=== PATIENT | male | born 1945 | race Caucasian/White ===

== ENCOUNTER 2024-09-19 14:46 | Outpatient (RCR) | payer MEDICARE, BC, SELFPAY ==
[2024-09-17 14:40] LABS: Basophils % (Auto) 1 % (0-2.5); Eosinophils # (Auto) 0.1 Thou/mm3 (0.0-0.5); Eosinophils % (Auto) 3 % (0-10); Hematocrit 35.4 % (41.0-53.0); Hemoglobin 11.1 g/dL (13.5-16.0); Immature Granulocytes % (Auto) 2 % (0-0); Immature Granulocytes Auto 0.07 Thou/mm3 (0.00-0.00); Lymphocytes # (Auto) 0.8 Thou/mm3 (1.0-4.8); Lymphocytes % (Auto) 19 % (10-50); Mean Corpuscular HGB Conc 31.4 g/dl (31.0-37.0); Mean Corpuscular Hemoglobin 31.4 pg (25.0-35.0); Mean Corpuscular Volume 100 fL (80-100); Monocytes # (Auto) 0.7 Thou/mm3 (0.0-0.8); Monocytes % (Auto) 16 % (0-12); Neutrophils # (Auto) 2.6 Thou/mm3 (1.8-7.7); Neutrophils % (Auto) 60 % (37-80); Nucleated Red Blood Cell % 0 /100 WBC (0); Platelet Count 122 Thou/mm3 (140-440); RDW Standard Deviation 45.6 fL (35.1-43.9); Red Blood Count 3.54 Miln/mm3 (4.50-5.90); White Blood Count 4.3 Thou/mm3 (3.8-10.6)
[2024-09-17 15:01] LABS: Folate 18.38 ng/mL (>5.38); Vitamin B12 1263 pg/mL (211-911)
[2024-09-17 15:03] LABS: Alanine Aminotransferase 9 U/L (10-49); Albumin/Globulin Ratio 1.8 (1.2-2.2); Alkaline Phosphatase 135 U/L (46-116); Anion Gap 9 (7-16); Aspartate Amino Transferase 13 U/L (0-34); BUN/Creatinine Ratio 21 Ratio (12-20); Bilirubin,Total 0.5 mg/dL (0.3-1.2); Blood Urea Nitrogen 17 mg/dL (9-23); Carbon Dioxide 25.9 mMol/L (20.0-31.0); Chloride 101 mMol/L (98-107); Creatinine (Component) 0.8 mg/dL (0.6-1.3); Globulin 2.2 gm/dL (2.3-3.5); Glucose 167 mg/dL (74-106); LDH (Lactate Dehydrogenase) 170 U/L (120-246); Osmolality,Calculated 277 (275-295); Potassium 3.5 mMol/L (3.4-5.1); Sodium 136 mMol/L (136-145); Total Protein 6.2 gm/dL (5.7-8.2); eGFR > 60 See Note
[2024-09-17 15:08] LABS: Ferritin 1184 ng/mL (10.5-307.3); Total Iron Binding Capacity 240 mcg/dL (250-425)
[2024-09-17 15:18] LABS: Iron 61 mcg/dL (65-175); Percent Iron Saturation 25 % (20-55); Unsaturated Iron Binding 179 (225-295)
[2024-09-25 06:17] LABS: Haptoglobin* 96 mg/dL (43-212)
== END 2024-10-09 23:59 | disposition home or self-care (01) ==
LOC: SCTC 14:46
PROVIDERS: PCP Nurse Practitioner Family; Referring Provider Internal Medicine Hematology & Oncology; Visit Provider Nurse Practitioner Family
DX: C83.04 Small cell B-cell lymphoma, lymph nodes of axilla and upper limb (principal); D50.9 Iron deficiency anemia, unspecified
CPT/HCPCS: 36591; 80053; 82607; 82728; 82746; 83010; 83540; 83550; 83615; 85025; 99212; A4216; J1642; G0463

== ENCOUNTER 2024-10-23 13:50 | Outpatient (RCR) | payer MEDICARE, BC, SELFPAY ==
[2024-10-22 17:01] LABS: Basophils % (Auto) 1 % (0-2.5); Eosinophils # (Auto) 0.2 Thou/mm3 (0.0-0.5); Eosinophils % (Auto) 4 % (0-10); Hematocrit 37.2 % (41.0-53.0); Hemoglobin 11.9 g/dL (13.5-16.0); Immature Granulocytes % (Auto) 1 % (0-0); Immature Granulocytes Auto 0.06 Thou/mm3 (0.00-0.00); Lymphocytes # (Auto) 0.8 Thou/mm3 (1.0-4.8); Lymphocytes % (Auto) 16 % (10-50); Mean Corpuscular Hemoglobin 30.7 pg (25.0-35.0); Mean Corpuscular Volume 96 fL (80-100); Monocytes # (Auto) 0.7 Thou/mm3 (0.0-0.8); Monocytes % (Auto) 14 % (0-12); Neutrophils # (Auto) 3.1 Thou/mm3 (1.8-7.7); Neutrophils % (Auto) 65 % (37-80); Nucleated Red Blood Cell % 0 /100 WBC (0); Platelet Count 114 Thou/mm3 (140-440); RDW Standard Deviation 41.2 fL (35.1-43.9); Red Blood Count 3.87 Miln/mm3 (4.50-5.90); White Blood Count 4.8 Thou/mm3 (3.8-10.6)
[2024-10-22 17:21] LABS: Alanine Aminotransferase 10 U/L (10-49); Albumin, Serum 3.9 gm/dL (3.4-4.8); Albumin/Globulin Ratio 1.7 (1.2-2.2); Alkaline Phosphatase 126 U/L (46-116); Anion Gap 10 (7-16); Aspartate Amino Transferase 17 U/L (0-34); BUN/Creatinine Ratio 24 Ratio (12-20); Bilirubin,Total 0.6 mg/dL (0.3-1.2); Blood Urea Nitrogen 19 mg/dL (9-23); Calcium 8.8 mg/dL (8.3-10.6); Calcium (Corrected) 8.9 mg/dL (8.5-10.1); Carbon Dioxide 27.6 mMol/L (20.0-31.0); Chloride 101 mMol/L (98-107); Creatinine (Component) 0.8 mg/dL (0.6-1.3); Globulin 2.3 gm/dL (2.3-3.5); Glucose 202 mg/dL (74-106); Osmolality,Calculated 285 (275-295); Potassium 3.6 mMol/L (3.4-5.1); Sodium 139 mMol/L (136-145); Total Protein 6.2 gm/dL (5.7-8.2); eGFR > 60 See Note
[2024-10-22 19:27] LABS: Folate 20.15 ng/mL (>5.38); Vitamin B12 1100 pg/mL (211-911)
[2024-10-22 20:58] LABS: Ferritin 1049 ng/mL (10.5-307.3); Iron 55 mcg/dL (65-175); Percent Iron Saturation 23 % (20-55); Total Iron Binding Capacity 236 mcg/dL (250-425); Unsaturated Iron Binding 181 (225-295)
== END 2024-11-09 23:59 | disposition home or self-care (01) ==
LOC: SCTC 13:50
PROVIDERS: Internal Medicine Hematology & Oncology; PCP Nurse Practitioner Family; Referring Provider Nurse Practitioner Family; Visit Provider Nurse Practitioner Family
DX: C83.04 Small cell B-cell lymphoma, lymph nodes of axilla and upper limb (principal); D50.9 Iron deficiency anemia, unspecified; J90 Pleural effusion, not elsewhere classified
CPT/HCPCS: 36591; 80053; 82607; 82728; 82746; 83540; 83550; 85025; 99212; A4216; J1642; G0463

== ENCOUNTER 2024-11-22 13:20 | Outpatient (RCR) | payer MEDICARE, BC, SELFPAY ==
[2024-11-21 14:17] LABS: Basophils % (Auto) 1 % (0-2.5); Eosinophils # (Auto) 0.2 Thou/mm3 (0.0-0.5); Eosinophils % (Auto) 4 % (0-10); Hematocrit 36.9 % (41.0-53.0); Hemoglobin 12.3 g/dL (13.5-16.0); Immature Granulocytes % (Auto) 6 % (0-0); Immature Granulocytes Auto 0.32 Thou/mm3 (0.00-0.00); Lymphocytes # (Auto) 0.8 Thou/mm3 (1.0-4.8); Lymphocytes % (Auto) 14 % (10-50); Mean Corpuscular HGB Conc 33.3 g/dl (31.0-37.0); Mean Corpuscular Hemoglobin 30.6 pg (25.0-35.0); Mean Corpuscular Volume 92 fL (80-100); Monocytes # (Auto) 0.8 Thou/mm3 (0.0-0.8); Monocytes % (Auto) 15 % (0-12); Neutrophils # (Auto) 3.2 Thou/mm3 (1.8-7.7); Neutrophils % (Auto) 60 % (37-80); Nucleated Red Blood Cell % 0 /100 WBC (0); Platelet Count 127 Thou/mm3 (140-440); RDW Standard Deviation 40.8 fL (35.1-43.9); Red Blood Count 4.02 Miln/mm3 (4.50-5.90); White Blood Count 5.3 Thou/mm3 (3.8-10.6)
[2024-11-21 14:41] LABS: Alanine Aminotransferase 10 U/L (10-49); Albumin/Globulin Ratio 1.9 (1.2-2.2); Alkaline Phosphatase 136 U/L (46-116); Anion Gap 7 (7-16); Aspartate Amino Transferase 16 U/L (0-34); BUN/Creatinine Ratio 27 Ratio (12-20); Bilirubin,Total 0.7 mg/dL (0.3-1.2); Blood Urea Nitrogen 19 mg/dL (9-23); Calcium 8.7 mg/dL (8.3-10.6); Calcium (Corrected) 8.7 mg/dL (8.5-10.1); Carbon Dioxide 27.3 mMol/L (20.0-31.0); Chloride 106 mMol/L (98-107); Creatinine (Component) 0.7 mg/dL (0.6-1.3); Globulin 2.1 gm/dL (2.3-3.5); Glucose 166 mg/dL (74-106); Osmolality,Calculated 285 (275-295); Potassium 3.9 mMol/L (3.4-5.1); Sodium 140 mMol/L (136-145); Total Protein 6.1 gm/dL (5.7-8.2); eGFR > 60 See Note
[2024-11-21 15:11] LABS: Ferritin 993 ng/mL (10.5-307.3); Iron 50 mcg/dL (65-175); Percent Iron Saturation 21 % (20-55); Total Iron Binding Capacity 231 mcg/dL (250-425); Unsaturated Iron Binding 181 (225-295)
[2024-11-21 15:25] LABS: Folate > 24.00 ng/mL (>5.38); Vitamin B12 1716 pg/mL (211-911)
== END 2024-12-07 23:59 | disposition home or self-care (01) ==
LOC: SCTC 13:20
PROVIDERS: Internal Medicine Hematology & Oncology; PCP Nurse Practitioner Family; Referring Provider Nurse Practitioner Family; Visit Provider Nurse Practitioner Family
DX: C83.04 Small cell B-cell lymphoma, lymph nodes of axilla and upper limb (principal); D50.9 Iron deficiency anemia, unspecified; J90 Pleural effusion, not elsewhere classified
CPT/HCPCS: 36591; 80053; 82607; 82728; 82746; 83540; 83550; 85025; 99212; A4216; J1642; G0463

== ENCOUNTER 2024-12-24 14:03 | Outpatient (RCR) | payer MEDICARE, BC, SELFPAY ==
[2024-12-21 11:51] LABS: Basophils # (Auto) 0.1 Thou/mm3 (0.0-0.2); Basophils % (Auto) 1 % (0-2.5); Eosinophils # (Auto) 0.3 Thou/mm3 (0.0-0.5); Eosinophils % (Auto) 5 % (0-10); Hemoglobin 12.6 g/dL (13.5-16.0); Immature Granulocytes % (Auto) 4 % (0-0); Immature Granulocytes Auto 0.25 Thou/mm3 (0.00-0.00); Lymphocytes % (Auto) 16 % (10-50); Mean Corpuscular HGB Conc 32.3 g/dl (31.0-37.0); Mean Corpuscular Hemoglobin 29.9 pg (25.0-35.0); Mean Corpuscular Volume 92 fL (80-100); Monocytes # (Auto) 1.2 Thou/mm3 (0.0-0.8); Monocytes % (Auto) 19 % (0-12); Neutrophils # (Auto) 3.6 Thou/mm3 (1.8-7.7); Neutrophils % (Auto) 56 % (37-80); Nucleated Red Blood Cell % 0 /100 WBC (0); Platelet Count 127 Thou/mm3 (140-440); RDW Standard Deviation 42.2 fL (35.1-43.9); Red Blood Count 4.22 Miln/mm3 (4.50-5.90); White Blood Count 6.4 Thou/mm3 (3.8-10.6)
[2024-12-21 12:15] LABS: Alanine Aminotransferase 11 U/L (10-49); Albumin/Globulin Ratio 1.9 (1.2-2.2); Alkaline Phosphatase 128 U/L (46-116); Anion Gap 8 (7-16); Aspartate Amino Transferase 14 U/L (0-34); BUN/Creatinine Ratio 24 Ratio (12-20); Bilirubin,Total 0.7 mg/dL (0.3-1.2); Blood Urea Nitrogen 17 mg/dL (9-23); Calcium 8.7 mg/dL (8.3-10.6); Calcium (Corrected) 8.7 mg/dL (8.5-10.1); Carbon Dioxide 26.8 mMol/L (20.0-31.0); Chloride 105 mMol/L (98-107); Creatinine (Component) 0.7 mg/dL (0.6-1.3); Globulin 2.1 gm/dL (2.3-3.5); Glucose 78 mg/dL (74-106); Osmolality,Calculated 279 (275-295); Potassium 4.1 mMol/L (3.4-5.1); Sodium 140 mMol/L (136-145); Total Protein 6.1 gm/dL (5.7-8.2); eGFR > 60 See Note
[2024-12-21 12:24] LABS: Ferritin 1082 ng/mL (10.5-307.3); Folate 23.15 ng/mL (>5.38); Iron 45 mcg/dL (65-175); Percent Iron Saturation 20 % (20-55); Total Iron Binding Capacity 224 mcg/dL (250-425); Unsaturated Iron Binding 179 (225-295); Vitamin B12 1813 pg/mL (211-911)
== END 2025-01-07 23:59 | disposition home or self-care (01) ==
LOC: SCTC 14:03
PROVIDERS: PCP Nurse Practitioner Family; Referring Provider Nurse Practitioner Family; Visit Provider Internal Medicine Hematology & Oncology
DX: C83.04 Small cell B-cell lymphoma, lymph nodes of axilla and upper limb (principal); D50.9 Iron deficiency anemia, unspecified
CPT/HCPCS: 36591; 80053; 82607; 82728; 82746; 83540; 83550; 85025; 99212; A4216; J1642; G0463

== ENCOUNTER 2025-01-28 13:22 | Outpatient (RCR) | payer MEDICARE, BC, SELFPAY ==
[2025-01-25 11:43] LABS: Basophils # (Auto) 0.1 Thou/mm3 (0.0-0.2); Basophils % (Auto) 1 % (0-2.5); Eosinophils # (Auto) 0.4 Thou/mm3 (0.0-0.5); Eosinophils % (Auto) 7 % (0-10); Hematocrit 40.8 % (41.0-53.0); Hemoglobin 13.3 g/dL (13.5-16.0); Immature Granulocytes % (Auto) 2 % (0-0); Immature Granulocytes Auto 0.13 Thou/mm3 (0.00-0.00); Lymphocytes % (Auto) 14 % (10-50); Mean Corpuscular HGB Conc 32.6 g/dl (31.0-37.0); Mean Corpuscular Hemoglobin 29.3 pg (25.0-35.0); Mean Corpuscular Volume 90 fL (80-100); Monocytes # (Auto) 1.2 Thou/mm3 (0.0-0.8); Monocytes % (Auto) 17 % (0-12); Neutrophils % (Auto) 59 % (37-80); Nucleated Red Blood Cell % 0 /100 WBC (0); Platelet Count 141 Thou/mm3 (140-440); RDW Standard Deviation 41.5 fL (35.1-43.9); Red Blood Count 4.54 Miln/mm3 (4.50-5.90); White Blood Count 6.8 Thou/mm3 (3.8-10.6)
[2025-01-25 12:07] LABS: Folate 20.67 ng/mL (>5.38); Vitamin B12 1549 pg/mL (211-911)
[2025-01-25 12:09] LABS: Ferritin 996 ng/mL (10.5-307.3); Iron 54 mcg/dL (65-175); Percent Iron Saturation 24 % (20-55); Total Iron Binding Capacity 222 mcg/dL (250-425); Unsaturated Iron Binding 168 (225-295)
[2025-01-25 12:18] LABS: Alanine Aminotransferase < 7 U/L (10-49); Albumin/Globulin Ratio 1.9 (1.2-2.2); Alkaline Phosphatase 126 U/L (46-116); Anion Gap 6 (7-16); Aspartate Amino Transferase 12 U/L (0-34); BUN/Creatinine Ratio 21 Ratio (12-20); Bilirubin,Total 0.7 mg/dL (0.3-1.2); Blood Urea Nitrogen 17 mg/dL (9-23); Calcium 8.7 mg/dL (8.3-10.6); Calcium (Corrected) 8.7 mg/dL (8.5-10.1); Carbon Dioxide 27.6 mMol/L (20.0-31.0); Chloride 107 mMol/L (98-107); Creatinine (Component) 0.8 mg/dL (0.6-1.3); Globulin 2.1 gm/dL (2.3-3.5); Glucose 90 mg/dL (74-106); Osmolality,Calculated 282 (275-295); Potassium 4.1 mMol/L (3.4-5.1); Sodium 141 mMol/L (136-145); Total Protein 6.1 gm/dL (5.7-8.2); eGFR > 60 See Note
== END 2025-02-06 23:59 | disposition home or self-care (01) ==
LOC: SCTC 13:22
PROVIDERS: Internal Medicine Hematology & Oncology; PCP Nurse Practitioner Family; Referring Provider Nurse Practitioner Family; Visit Provider Nurse Practitioner Family
DX: D50.9 Iron deficiency anemia, unspecified (principal)
CPT/HCPCS: 36591; 80053; 82607; 82728; 82746; 83540; 83550; 85025; 99212; A4216; J1642; G0463

== ENCOUNTER 2025-03-07 13:27 | Outpatient (RCR) | payer MEDICARE, BC, SELFPAY ==
[2025-03-07 15:43] LABS: Basophils # (Auto) 0.1 Thou/mm3 (0.0-0.2); Basophils % (Auto) 1 % (0-2.5); Eosinophils # (Auto) 0.3 Thou/mm3 (0.0-0.5); Eosinophils % (Auto) 5 % (0-10); Hematocrit 39.1 % (41.0-53.0); Hemoglobin 13.3 g/dL (13.5-16.0); Immature Granulocytes % (Auto) 2 % (0-0); Immature Granulocytes Auto 0.12 Thou/mm3 (0.00-0.00); Lymphocytes # (Auto) 0.7 Thou/mm3 (1.0-4.8); Lymphocytes % (Auto) 11 % (10-50); Mean Corpuscular Hemoglobin 29.9 pg (25.0-35.0); Mean Corpuscular Volume 88 fL (80-100); Monocytes % (Auto) 15 % (0-12); Neutrophils # (Auto) 4.4 Thou/mm3 (1.8-7.7); Neutrophils % (Auto) 67 % (37-80); Nucleated Red Blood Cell % 0 /100 WBC (0); Platelet Count 150 Thou/mm3 (140-440); RDW Standard Deviation 41.7 fL (35.1-43.9); Red Blood Count 4.45 Miln/mm3 (4.50-5.90); White Blood Count 6.7 Thou/mm3 (3.8-10.6)
[2025-03-07 16:16] LABS: Ferritin 882 ng/mL (10.5-307.3); Iron 36 mcg/dL (65-175); Percent Iron Saturation 16 % (20-55); Total Iron Binding Capacity 212 mcg/dL (250-425); Unsaturated Iron Binding 176 (225-295)
[2025-03-07 16:17] LABS: Folate 23.13 ng/mL (>5.38); Vitamin B12 1332 pg/mL (211-911)
[2025-03-07 16:26] LABS: Alanine Aminotransferase < 7 U/L (10-49); Albumin, Serum 3.9 gm/dL (3.4-4.8); Alkaline Phosphatase 119 U/L (46-116); Anion Gap 10 (7-16); Aspartate Amino Transferase 13 U/L (0-34); BUN/Creatinine Ratio 19 Ratio (12-20); Bilirubin,Total 0.6 mg/dL (0.3-1.2); Blood Urea Nitrogen 17 mg/dL (9-23); Calcium 8.1 mg/dL (8.3-10.6); Calcium (Corrected) 8.2 mg/dL (8.5-10.1); Carbon Dioxide 26.8 mMol/L (20.0-31.0); Chloride 104 mMol/L (98-107); Creatinine (Component) 0.9 mg/dL (0.6-1.3); Glucose 179 mg/dL (74-106); Osmolality,Calculated 286 (275-295); Potassium 3.8 mMol/L (3.4-5.1); Sodium 141 mMol/L (136-145); Total Protein 5.9 gm/dL (5.7-8.2); eGFR > 60 See Note
== END 2025-03-09 23:59 | disposition home or self-care (01) ==
LOC: SCTC 13:27
PROVIDERS: PCP Student in an Organized Health Care Education/Training Program; Referring Provider Internal Medicine Hematology & Oncology; Visit Provider Internal Medicine Hematology & Oncology
DX: D50.9 Iron deficiency anemia, unspecified (principal); C83.04 Small cell B-cell lymphoma, lymph nodes of axilla and upper limb
CPT/HCPCS: 36591; 80053; 82607; 82728; 82746; 83540; 83550; 85025; A4216; J1642

== ENCOUNTER 2025-04-08 09:23 | Outpatient (RCR) | payer MEDICARE, BC, SELFPAY ==
[2025-04-08 10:08] LABS: Basophils % (Auto) 1 % (0-2.5); Eosinophils # (Auto) 0.1 Thou/mm3 (0.0-0.5); Eosinophils % (Auto) 2 % (0-10); Hematocrit 40.5 % (41.0-53.0); Hemoglobin 13.5 g/dL (13.5-16.0); Immature Granulocytes % (Auto) 2 % (0-0); Immature Granulocytes Auto 0.17 Thou/mm3 (0.00-0.00); Lymphocytes # (Auto) 0.8 Thou/mm3 (1.0-4.8); Lymphocytes % (Auto) 11 % (10-50); Mean Corpuscular HGB Conc 33.3 g/dl (31.0-37.0); Mean Corpuscular Hemoglobin 29.3 pg (25.0-35.0); Mean Corpuscular Volume 88 fL (80-100); Monocytes # (Auto) 1.2 Thou/mm3 (0.0-0.8); Monocytes % (Auto) 16 % (0-12); Neutrophils % (Auto) 68 % (37-80); Nucleated Red Blood Cell % 0 /100 WBC (0); Platelet Count 152 Thou/mm3 (140-440); RDW Standard Deviation 42.1 fL (35.1-43.9); White Blood Count 7.3 Thou/mm3 (3.8-10.6)
[2025-04-08 10:27] LABS: Alanine Aminotransferase < 7 U/L (10-49); Albumin, Serum 4.1 gm/dL (3.4-4.8); Albumin/Globulin Ratio 2.2 (1.2-2.2); Alkaline Phosphatase 123 U/L (46-116); Anion Gap 5 (7-16); Aspartate Amino Transferase 13 U/L (0-34); BUN/Creatinine Ratio 20 Ratio (12-20); Bilirubin,Total 0.5 mg/dL (0.3-1.2); Blood Urea Nitrogen 16 mg/dL (9-23); Carbon Dioxide 27.1 mMol/L (20.0-31.0); Chloride 104 mMol/L (98-107); Creatinine (Component) 0.8 mg/dL (0.6-1.3); Globulin 1.9 gm/dL (2.3-3.5); Glucose 144 mg/dL (74-106); Osmolality,Calculated 276 (275-295); Potassium 3.8 mMol/L (3.4-5.1); Sodium 136 mMol/L (136-145); eGFR > 60 See Note
[2025-04-08 10:30] LABS: Ferritin 903 ng/mL (10.5-307.3); Folate 21.14 ng/mL (>5.38); Iron 36 mcg/dL (65-175); Percent Iron Saturation 17 % (20-55); Total Iron Binding Capacity 201 mcg/dL (250-425); Unsaturated Iron Binding 165 (225-295); Vitamin B12 694 pg/mL (211-911)
== END 2025-04-08 23:59 | disposition home or self-care (01) ==
LOC: SCTC 09:23
PROVIDERS: PCP Student in an Organized Health Care Education/Training Program; Referring Provider Student in an Organized Health Care Education/Training Program; Visit Provider Nurse Practitioner Family
DX: C83.04 Small cell B-cell lymphoma, lymph nodes of axilla and upper limb (principal); D50.9 Iron deficiency anemia, unspecified; Z92.21 Personal history of antineoplastic chemotherapy
CPT/HCPCS: 36591; 80053; 82607; 82728; 82746; 83540; 83550; 85025; 99212; A4216; J1642; G0463

== ENCOUNTER 2025-05-09 13:55 | Outpatient (RCR) | payer MEDICARE, BC, SELFPAY | END 2025-05-09 23:59 | disposition home or self-care (01) | LOC: SCTC 13:55 | PROVIDERS: PCP Student in an Organized Health Care Education/Training Program; Referring Provider Student in an Organized Health Care Education/Training Program; Visit Provider Nurse Practitioner Family | DX: D50.9 Iron deficiency anemia, unspecified (principal); C83.04 Small cell B-cell lymphoma, lymph nodes of axilla and upper limb | CPT/HCPCS: 96365; 99212; A4216; J1642; J7040; J7050; Q0138; G0463 ==

== ENCOUNTER 2025-05-30 13:40 | Outpatient (RCR) | payer MEDICARE, BC, SELFPAY | END 2025-06-09 23:59 | disposition home or self-care (01) | LOC: SCTC 13:40 | PROVIDERS: PCP Student in an Organized Health Care Education/Training Program; Referring Provider Student in an Organized Health Care Education/Training Program; Visit Provider Internal Medicine Hematology & Oncology | DX: D50.9 Iron deficiency anemia, unspecified (principal); C83.04 Small cell B-cell lymphoma, lymph nodes of axilla and upper limb | CPT/HCPCS: 96365; J1642; J7040; J7050; Q0138 ==

== ENCOUNTER 2025-06-25 15:27 | Outpatient (RCR) | payer MEDICARE, BC, SELFPAY ==
[2025-06-24 09:53] LABS: Basophils # (Auto) 0.0 Thou/mm3 (0.0-0.2); Basophils % (Auto) 1 % (0-2.5); Eosinophils # (Auto) 0.0 Thou/mm3 (0.0-0.5); Eosinophils % (Auto) 1 % (0-10); Hematocrit 40.3 % (41.0-53.0); Hemoglobin 13.0 g/dL (13.5-16.0); Immature Granulocytes Auto 0.09 Thou/mm3 (0.00-0.00); Immature Reticulocyte Fraction 6.5 % (2.3-13.4); Lymphocytes # (Auto) 0.5 Thou/mm3 (1.0-4.8); Lymphocytes % (Auto) 13 % (10-50); Mean Corpuscular HGB Conc 32.3 g/dl (31.0-37.0); Mean Corpuscular Hemoglobin 29.1 pg (25.0-35.0); Mean Corpuscular Volume 90 fL (80-100); Monocytes # (Auto) 0.8 Thou/mm3 (0.0-0.8); Monocytes % (Auto) 20 % (0-12); Neutrophils # (Auto) 2.5 Thou/mm3 (1.8-7.7); Neutrophils % (Auto) 64 % (37-80); Nucleated Red Blood Cell # 0.00 Thou/mm3 (0.00-0.00); Nucleated Red Blood Cell % 0 /100 WBC (0); Platelet Count 147 Thou/mm3 (140-440); RDW Standard Deviation 43.8 fL (35.1-43.9); Red Blood Count 4.47 Miln/mm3 (4.50-5.90); Reticulocyte % (Auto) 2.1 % (0.5-1.5); Reticulocyte Absolute Auto 95.6 Biln/L (25.0-75.0); Reticulocyte Hgb Content 32.3 pg (28.0-35.0); White Blood Count 4.0 Thou/mm3 (3.8-10.6)
[2025-06-24 10:23] LABS: Folate 19.02 ng/mL (>5.38); Vitamin B12 1402 pg/mL (211-911)
[2025-06-24 10:26] LABS: Alanine Aminotransferase 8 U/L (10-49); Albumin, Serum 3.8 gm/dL (3.4-4.8); Albumin/Globulin Ratio 1.7 (1.2-2.2); Alkaline Phosphatase 110 U/L (46-116); Anion Gap 9 (7-16); Aspartate Amino Transferase 14 U/L (0-34); BUN/Creatinine Ratio 13 Ratio (12-20); Bilirubin,Total 0.7 mg/dL (0.3-1.2); Blood Urea Nitrogen 10 mg/dL (9-23); Calcium 8.8 mg/dL (8.3-10.6); Calcium (Corrected) 9.0 mg/dL (8.5-10.1); Carbon Dioxide 23.7 mMol/L (20.0-31.0); Chloride 104 mMol/L (98-107); Creatinine (Component) 0.8 mg/dL (0.6-1.3); Globulin 2.2 gm/dL (2.3-3.5); Glucose 122 mg/dL (74-106); Osmolality,Calculated 273 (275-295); Potassium 4.2 mMol/L (3.4-5.1); Sodium 137 mMol/L (136-145); Total Protein 6.0 gm/dL (5.7-8.2); eGFR > 60 See Note
[2025-06-24 10:30] LABS: Iron 27 mcg/dL (65-175); Percent Iron Saturation 15 % (20-55); Total Iron Binding Capacity 176 mcg/dL (250-425); Unsaturated Iron Binding 149 (225-295)
[2025-06-24 10:39] LABS: Ferritin 1984 ng/mL (10.5-307.3)
== END 2025-07-09 23:59 | disposition home or self-care (01) ==
LOC: SCTC 15:27
PROVIDERS: PCP Student in an Organized Health Care Education/Training Program; Referring Provider Student in an Organized Health Care Education/Training Program; Visit Provider Internal Medicine Hematology & Oncology
DX: D50.9 Iron deficiency anemia, unspecified (principal); C83.04 Small cell B-cell lymphoma, lymph nodes of axilla and upper limb; Z86.16 Personal history of COVID-19
CPT/HCPCS: 36591; 80053; 82607; 82728; 82746; 83540; 83550; 85025; 85046; 99213; A4216; J1642; G0463

== ENCOUNTER 2025-08-05 13:34 | Outpatient (RCR) | payer MEDICARE, BC, SELFPAY | END 2025-08-09 23:59 | disposition home or self-care (01) | LOC: SCTC 13:34 | PROVIDERS: PCP Student in an Organized Health Care Education/Training Program; Referring Provider Student in an Organized Health Care Education/Training Program; Visit Provider Internal Medicine Hematology & Oncology | DX: D50.9 Iron deficiency anemia, unspecified (principal); C83.04 Small cell B-cell lymphoma, lymph nodes of axilla and upper limb; Z86.16 Personal history of COVID-19 | CPT/HCPCS: 96365; J1642; J3490; J7040; Q0138 ==

== ENCOUNTER 2025-08-28 14:23 | Outpatient (RCR) | payer MEDICARE, BC, SELFPAY ==
[2025-08-27 15:22] LABS: Basophils # (Auto) 0.1 Thou/mm3 (0.0-0.2); Basophils % (Auto) 1 % (0-2.5); Eosinophils # (Auto) 0.1 Thou/mm3 (0.0-0.5); Eosinophils % (Auto) 1 % (0-10); Ferritin 1475 ng/mL (10.5-307.3); Hematocrit 41.2 % (41.0-53.0); Hemoglobin 13.5 g/dL (13.5-16.0); Immature Granulocytes Auto 0.16 Thou/mm3 (0.00-0.00); Immature Reticulocyte Fraction 7.5 % (2.3-13.4); Iron 63 mcg/dL (65-175); Lymphocytes # (Auto) 0.8 Thou/mm3 (1.0-4.8); Lymphocytes % (Auto) 10 % (10-50); Mean Corpuscular HGB Conc 32.8 g/dl (31.0-37.0); Mean Corpuscular Hemoglobin 29.7 pg (25.0-35.0); Mean Corpuscular Volume 91 fL (80-100); Monocytes # (Auto) 1.1 Thou/mm3 (0.0-0.8); Monocytes % (Auto) 15 % (0-12); Neutrophils # (Auto) 5.4 Thou/mm3 (1.8-7.7); Neutrophils % (Auto) 71 % (37-80); Nucleated Red Blood Cell # 0.00 Thou/mm3 (0.00-0.00); Nucleated Red Blood Cell % 0 /100 WBC (0); Percent Iron Saturation 31 % (20-55); Platelet Count 157 Thou/mm3 (140-440); RDW Standard Deviation 45.7 fL (35.1-43.9); Red Blood Count 4.54 Miln/mm3 (4.50-5.90); Reticulocyte % (Auto) 2.5 % (0.5-1.5); Reticulocyte Absolute Auto 109.2 Biln/L (25.0-75.0); Reticulocyte Hgb Content 35.0 pg (28.0-35.0); Total Iron Binding Capacity 203 mcg/dL (250-425); Unsaturated Iron Binding 140 (225-295); White Blood Count 7.6 Thou/mm3 (3.8-10.6)
[2025-08-27 15:23] LABS: Folate 22.91 ng/mL (>5.38); Vitamin B12 1071 pg/mL (211-911)
[2025-08-27 15:31] LABS: Alanine Aminotransferase 9 U/L (10-49); Albumin, Serum 4.5 gm/dL (3.4-4.8); Albumin/Globulin Ratio 2.1 (1.2-2.2); Alkaline Phosphatase 112 U/L (46-116); Anion Gap 11 (7-16); Aspartate Amino Transferase 18 U/L (0-34); BUN/Creatinine Ratio 18 Ratio (12-20); Bilirubin,Total 0.8 mg/dL (0.3-1.2); Blood Urea Nitrogen 16 mg/dL (9-23); Calcium 8.7 mg/dL (8.3-10.6); Calcium (Corrected) 8.7 mg/dL (8.5-10.1); Carbon Dioxide 25.5 mMol/L (20.0-31.0); Chloride 105 mMol/L (98-107); Creatinine (Component) 0.9 mg/dL (0.6-1.3); Globulin 2.1 gm/dL (2.3-3.5); Glucose 114 mg/dL (74-106); LDH (Lactate Dehydrogenase) 195 U/L (120-246); Osmolality,Calculated 283 (275-295); Potassium 3.9 mMol/L (3.4-5.1); Sodium 141 mMol/L (136-145); Total Protein 6.6 gm/dL (5.7-8.2); eGFR > 60 See Note
--- NOTE | 2025-09-01 23:46 | CTCFLWUP_ITS ---
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 Patient is on acalabrutinib and takes 1 tablet and is tolerating well. Patient's medication was reduced after he had bruising and nasal bleed. Patient at this time is doing very well. 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 S/p 6 cycle of Bendamustine rituximab chemotherapy (12/23/2021 - 05/20/2022) Maintenance rituximab (07/19/2022?12/05/2023). Skin rash reaction to rituximab on 12/05/2023. Patient declined to trying rituximab again. Benign left-sided pleural effusion. History of iron deficiency anemia, s/p Venofer and Feraheme infusions. 16 mm slightly more prominent right tracheal bronchial lymph node and 10 mm right Elisa lymphadenopathy from chest abdomen and pelvis CT done on 05/05/2023 Multiple PRBC transfusion July 2024-PET CT scan shows bilateral pleural effusion. No lymphadenopathy noted. 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 07/31/2024 started acalabrutinib 100 mg twice daily 02/20/2025 changed to acalabrutinib 100 mg once daily INTERVAL HISTORY: PREVIOUS NOTE: Savannah Chavez is a, 79-year-old ENG speaking male with following history. December 2020: Patient started having shortness of breath upon short distances. He was noted to have microcytic anemia. He was started on ferrous sulfate 1 tablet p.o. daily along with vitamin C as well as Colace. 07/14/2021: Patient had echocardiogram which showed an ejection fraction of 55- 60% 08/14/2021: Chest x-ray PA and lateral views?large left-sided pleural effusion was noted. 08/20/2021: Patient had left thoracentesis. 2650 cc of pleural fluid was removed. Cytology was negative for malignancy. 08/20/2021: Hemoglobin 7.4, MCV 71, WBC 6.6, ANC 4.0, platelets 204,000. Creatinine 0.8 alk phos 125 08/26/2021: CT scan of the chest abdomen and pelvis without contrast? 08/28/2021: CT scan of the chest abdomen and pelvis with IV contrast? 08/28/2021: MRI of the brain with IV contrast?no abnormal enhancing cerebellar or cerebral lesions were noted. 08/21/2020: Left therapeutic thoracentesis pleural fluid? 09/28/2021: Ultrasound-guided biopsy of the left axilla lymph node? 11/05/2021: Left axillary lymph node excision biopsy? 11/24/2021: PET/CT scan? 12/23/2021: The patient is started on Bendamustine and rituximab. 01/18/2022: Patient had left-sided thoracentesis. Unfortunately, he developed pneumothorax requiring him to have chest tube placed and admitted to the hospital. 05/04/2022: CT scan of the chest abdomen and pelvis with IV contrast 05/20/2022: Patient receives 6 cycle of Bendamustine and rituximab. 07/19/2022: Patient received first cycle of maintenance rituximab. 04/27/2023: Chest x-ray 2 view 04/27/2023: X-ray chest with decubitus 05/05/2023: CT chest abdomen pelvis with contrast 07/29/2023: Hemoglobin 9.3, MCV 77, platelet count 177,000, ANC 3.4, WBC 5.8, iron saturation 11% ferritin 449 vitamin B12 is 810 folate 22. 96 08/24/2023: Hemoglobin 8.5, MCV 77, platelet count 197,000, ANC 3.4, WBC 5.5, iron saturation 8%, ferritin 364, vitamin B12 783 folate 24 09/14/2023: Colonoscopy screening, 10/11/2023: Completed 4 infusions of Feraheme 10/13/2023: CT chest with contrast 10/21/2023: Hemoglobin 8.7, MCV 80, platelets 165,000, ANC 3.3, WBC 5.3, iron saturation 11%, ferritin 1,318, vitamin B12 635, folate 15.73 11/02/2023: CT abdomen and pelvis with contrast Impression: Moderate loculated left pleural fluid Hepatosplenomegaly Poorly defined periaortic pericaval adenopathy, the largest lymph node left lateral periaortic measuring 18 mm, consider PET CT scan follow-up 202201/03/2024: Hemoglobin 9.3, MCV 83, platelets 308,000, ANC 2.6, WBC 5.2, iron saturation 8%, ferritin 939, B12 725, folate 19.32 01/04/2024 to 01/11/2024: Feraheme x 2 infusions 01/19/2024: PET/CT IMPRESSION: Non hypermetabolic loculated pleural fluid in the left major fissure and left base, amenable to ultrasound-guided thoracentesis The mild para-aortic pericaval lymphadenopathy noted on the CT abdomen pelvis study November 02, 2023 is not hypermetabolic on this PET CT scan 02/29/2024: hemoglobin 9.6, MCV 85, ANC 2.2, WBC 4.5, platelets 149,000, iron saturation 17% 03/20/2024 to 04/10/2024: Feraheme x 4 infusions 05/25/2024: Hemoglobin 6.7, MCV 91, ANC 2.1, WBC 4.0, platelets 195,000, iron saturation 18%, ferritin 2076 05/28/2024: Hemoglobin 6.6, MCV 90, ANC 2.1, WBC 3.8, platelets 169,000 05/29/2024: 2 units of PRBC 06/04/2024: Hemoglobin 9.3, MCV 92, ANC 1.8, WBC 3.9, platelets 189,000, saturation 21%, ferritin 2306 06/20/2024: Hemoglobin 8.0, MCV 94, ANC 2.0, WBC 4.3, platelets 174,000, iron saturation 21%, ferritin 2365 09/17/2024: Hemoglobin 11.1, MCV 100, ANC 2.6, WBC 4.3, platelets 122,000, iron saturation 25%, ferritin 1283 DIAGNOSIS: Yifan marginal zone lymphoma. S/p 6 cycle of Bendamustine rituximab chemotherapy (12/23/2021 - 05/20/2022) Maintenance rituximab (07/19/2022?12/05/2023). Skin rash reaction to rituximab on 12/05/2023. Patient declined to trying rituximab again. Benign left-sided pleural effusion. History of iron deficiency anemia, s/p Venofer and Feraheme infusions. S/P Feraheme infusions, 04/10/2024 16 mm slightly more prominent right tracheal bronchial lymph node and 10 mm right Elisa lymphadenopathy from chest abdomen and pelvis CT done on 05/05/2023 2 units PRBC 05/29/2024. 07/31/2024 started acalabrutinib 100 mg twice daily DATE OF DIAGNOSIS: 09/28/2021 STAGE/TNM: TREATMENT HISTORY: Care?Plan Start?Date Cycle Day Intent VENOfer?200mg?IV?wkly 09/15/2021 1 70 Palliative Rituxan?375?+?Bendamustine?90?Ericka 12/23/2021 1 28 Palliative Rituximab?375mg/m*2?maint?q?2month 07/19/2022 1 60 Palliative FERAheme?4?doses 10/01/2023 1 28 Palliative FERAheme 01/04/2024 1 30 Palliative FERAheme?4?doses 03/20/2024 1 28 Palliative FERAheme 05/09/2025 1 30 Palliative FERAheme 05/23/2025 1 30 Palliative FERAheme 08/05/2025 1 30 Palliative HISTORY OF PRESENT ILLNESS: OTHER MEDICAL HISTORY/CONDITIONS: FAMILY HISTORY: ?[facility] Family Hx? SOCIAL HISTORY: MEDICATIONS: 1. acalabrutinib maleate - 100 mg 1 tab 1 tab every 12 hrs 2. Z72-Rywrw - 1,000 mcg 1 tab Daily 3. Calquence (acalabrutinib mal) - 100 mg 1 tab Daily 4. magnesium - 100 mg 1 Capsule Daily 5. Vitamin B12 - 100 mcg 1 tab Daily 6. Vitamin C - 1,000 mg 1 tab Daily?Palabra Meds? Medications Last Reconciled by Juju Villarreal MD on 08/28/2025 ALLERGIES: No Known Drug Allergies REVIEW OF SYSTEMS: A complete 14-point review of systems was performed and is negative except as noted in interval history. PHYSICAL EXAMINATION:?[facility] PE? VITAL SIGNS: Temperature?97.3, B/P?146/72, Oxygen?Saturation?96% Weight?135?lbs (Change?since?08/27/25:?-0.4?lbs) PAIN: 0 - No pain ECOG Performance Status: 0 - Asymptomatic and fully active Not done, visit was telemedicine LABORATORY DATA: I have personally reviewed and interpreted each of the patient?s relevant lab tests, abnormal findings are below: Date 08/27/25 ??GLUCOSE,RANDOM?(mg/dL) 114?H ??BLOOD?UREA?NITROGEN?(mg/dL) 16 ??CREATININE?(mg/dL) 0.90 ??SODIUM?(mmol/L) 141 ??POTASSIUM?(mmol/L) 3.9 ??CHLORIDE?(mmol/L) 105 ??CrCl?(CandG)?(ml/min) 59.71 ??AST/SGOT?(Unit/L) 18 ??ALT/SGPT?(Unit/L) 9?L ??ALKALINE?PHOSPHATASE?(Unit/L) 112 ??BILIRUBIN,?TOTAL?(mg/dL) 0.8 ??PROTEIN?TOTAL?(gm/dl) 6.6 ??ALBUMIN,?SERUM?(gm/dl) 4.5 ??GLOBULIN?(gm/dl) 2.1?L ??ALBUMIN/GLOBULIN?RATIO 2.1 ??CALCIUM,?SERUM?(mg/dL) 8.7 ??CALCIUM?SERUM?(CORRECTED)?(mg/dL) 8.7 ??LDH,?TOTAL?(Unit/L) 195 ??RETICULOCYTE?ABSOLUTE?AUTO?(Biln/L) 109.2?H ??TOTAL?IRON?BINDING?CAP?(S*)?(mcg/dL) 203?L ??UNBOUND?IBC?(mcg/dL) 140?L ASSESSMENT/PLAN:?Annalee Rosas Assessment/Plan? Savannah Chavez, a patient with a history of marginal zone lymphoma and iron- deficiency anemia, presents for follow-up is on acalabrutinib treatment and previously received iron infusions. Marginal zone lymphoma Assessment: Patient has a history of marginal zone lymphoma, status post 6 cycles of bendamustine and rituximab from 12/23/2021 to 05/20/2022. PET/CT scans in October and January 2024 showed no hypermetabolism. However, an July 2024 PET scan did not show hypermetabloism but showed increased pleural effusion. A bone marrow biopsy on 07/05/2024 showed more than 85% lymphoma cells. The patient was on maintenance rituximab, he had a reaction and declined further rituximab treatment. Acalabrutinib 100 mg twice daily was initiated on 07/2024. Since starting the medication, the patient reports increased energy and appetite levels, with a 15-pound weight gain. A subconductival hemorrhage resolved after decreasing acalabrutinib from twice daily to daily dosing. No specific lymphoma- related complaints or concerns Plan: - Continue acalabrutinib 100mg daily - Monitor CBC every 2 weeks - Order CBC and CMP prior to next follow-up - Follow-up appointment in 2 months Patient's anemia have resolved and no further need of iron Please follow-up closely Recent COVID-19 Infection Advised patient to take his COVID-vaccine flu vaccine as well as Pneumovax Follow-up with PCP ORDERS: Order # Description [id number] Follow Up 3 Months [id number] Ferritin + Iron Panel + Folic Acid; Serum + Vitamin B-12 [id number] Comprehensive Metabolic Panel - 12 + CBC with Auto Diff RETURN TO CLINIC: I reviewed the diagnosis, prognosis, and recommended treatment/procedure options with the patient (and/or their legal termite control service representative), including the potential benefits, risks, side effects and alternative therapies. We also discussed the option of no treatment and the possibility of clinical trial participation, if applicable. All questions were addressed, and they demonstrated understanding. They provided informed consent to proceed with the proposed plan of care. BILLING AND COMPLIANCE: I reviewed external records from providers outside my specialty as summarized above. I spent a total of 50 minutes on this patient?s care on the day of their visit excluding time spent related to any billed procedures. This time includes time spent with the patient as well as time spent documenting in the medical record, reviewing patients records and tests, obtaining history, placing orders, communicating with other healthcare professionals, counseling the patient, family or caregiver, and/or care coordination for the diagnoses above. Electronically Signed by: Herberth Rosas MD T: 11:44 PM CC: Deshaun?Leyda?Mildred,? PCP: Maribel Mendez Referring: Maribel Mendez This document was completed utilizing speech recognition software. Grammatical errors, random word insertions, pronoun errors, and incomplete sentences are an occasional consequence of this system due to software limitations, ambient noise, and hardware issues. Any formal questions or concerns about the content, text or information contained within the body of this dictation should be directly addressed to the provider for clarification.
[2025-09-03 06:37] LABS: Haptoglobin* 124 mg/dL (43-212)
== END 2025-09-08 23:59 | disposition home or self-care (01) ==
LOC: SCTC 14:23
PROVIDERS: PCP Student in an Organized Health Care Education/Training Program; Referring Provider Student in an Organized Health Care Education/Training Program; Visit Provider Internal Medicine Hematology & Oncology
DX: D50.9 Iron deficiency anemia, unspecified (principal); C83.04 Small cell B-cell lymphoma, lymph nodes of axilla and upper limb
CPT/HCPCS: 36591; 80053; 82607; 82728; 82746; 83010; 83540; 83550; 83615; 85025; 85046; 96365; 99212; A4216; J1642; J3490; J7040; Q0138; G0463